=== PATIENT | female | born 2000 | race Caucasian/White ===

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

== ENCOUNTER 2023-11-14 16:40 | Emergency (ER) | payer OTHER ==
[~2023-11-14] VITALS: Ht 154.9 cm; Wt 47.2 kg
[~2023-11-14 16:40] MED LIST: CEPH500 PO
[2023-11-14 16:48] VITALS: BP 120/71
== END 2023-11-14 18:00 | disposition home or self-care (01) ==
LOC: ER 16:40
DX: S63.91XA Sprain of unspecified part of right wrist and hand, initial encounter (principal); W23.2XXA Caught, crushed, jammed or pinched between a moving and stationary object, initial encounter
CPT/HCPCS: 73130; 99283-25; A9270; J1885

== ENCOUNTER 2023-12-04 03:25 | Emergency (ER) | payer OTHER ==
[~2023-12-04] VITALS: Ht 172.7 cm; Wt 49.9 kg
[2023-12-04 03:32] VITALS: BP 104/76
== END 2023-12-04 03:44 | disposition home or self-care (01) ==
LOC: ER 03:25
DX: S00.33XA Contusion of nose, initial encounter (principal); S00.12XA Contusion of left eyelid and periocular area, initial encounter; F10.99 Alcohol use, unspecified with unspecified alcohol-induced disorder; Y04.0XXA Assault by unarmed brawl or fight, initial encounter
CPT/HCPCS: 99282

== ENCOUNTER 2024-03-11 18:35 | Emergency (ER) | payer OTHER ==
[~2024-03-11] VITALS: Ht 154.9 cm; Wt 49.9 kg
[2024-03-11 21:00] VITALS: BP 111/54
== END 2024-03-11 21:16 | disposition home or self-care (01) ==
LOC: ER 18:35
DX: S22.41XA Multiple fractures of ribs, right side, initial encounter for closed fracture (principal); W18.30XA Fall on same level, unspecified, initial encounter

== ENCOUNTER 2024-11-03 08:40 | Emergency (ER) | payer OTHER ==
[~2024-11-03] VITALS: Ht 152.4 cm; Wt 47.6 kg
[~2024-11-03 08:40] MED LIST changes: +CYMBALTA30 M2 PO; +HYDHCL25 PO; +HYDR1TAB94 PO
[2024-11-03 09:28] VITALS: BP 131/78
[2024-11-03 10:02] LABS: CORONAVIRUS COVID-19 AG Negative (NEGATIVE); INFLUENZA A AG Negative (NEGATIVE); INFLUENZA B AG Negative (NEGATIVE)
[2024-11-03] MEDS ORDERED: ALBU90OI INH (12:21)
[2024-11-03] MEDS ORDERED: BENZ100A PO (12:21)
[2024-11-03] MEDS ORDERED: ONDA4ODT MM (12:21)
[2024-11-03] MEDS ORDERED: Dexamethasone Sod Phos 10 MG/ML 1ML VIAL PO ONE (12:25)
== END 2024-11-03 12:45 | disposition home or self-care (01) ==
LOC: ER 08:40
PROVIDERS: Physician Assistant
DX: J40 Bronchitis, not specified as acute or chronic (principal); Z79.899 Other long term (current) drug therapy
CPT/HCPCS: 71046; 87428-QW; 99283-25; J1100

== ENCOUNTER 2025-05-18 23:01 | Emergency (ER) | payer OTHER ==
[~2025-05-18] VITALS: Ht 157.5 cm; Wt 49.9 kg
[~2025-05-18 23:01] MED LIST changes: +ALBU90OI INH; +BENZ100A PO; +ONDA4ODT MM
[2025-05-18 23:37] VITALS: BP 126/87
[2025-05-19] MEDS ORDERED: IBUP400 PO (00:10)
== END 2025-05-19 00:27 | disposition home or self-care (01) ==
LOC: ER 23:01
DX: S02.2XXA Fracture of nasal bones, initial encounter for closed fracture (principal); S00.03XA Contusion of scalp, initial encounter; Y09 Assault by unspecified means; Y92.59 Other trade areas as the place of occurrence of the external cause; F10.129 Alcohol abuse with intoxication, unspecified
CPT/HCPCS: 70450; 70486; 72125; 99284-25; A9270

== ENCOUNTER 2025-09-16 08:51 | Emergency (ER) | payer OTHER ==
[~2025-09-16] VITALS: Ht 152.4 cm; Wt 49.9 kg
[~2025-09-16 08:51] MED LIST changes: +IBUP400 PO
[2025-09-16] MEDS ORDERED: OLANZAPINE5 M1 PO (10:49)
[2025-09-16] MEDS ORDERED: OXAYDO5 M1 PO (11:57)
[2025-09-16] MEDS ORDERED: IBUP600 PO (11:57)
[2025-09-16 12:58] VITALS: BP 110/76
== END 2025-09-16 13:07 | disposition home or self-care (01) ==
LOC: ER 08:51
DX: S92.212A Displaced fracture of cuboid bone of left foot, initial encounter for closed fracture (principal); S92.322A Displaced fracture of second metatarsal bone, left foot, initial encounter for closed fracture; S92.332A Displaced fracture of third metatarsal bone, left foot, initial encounter for closed fracture; S92.342A Displaced fracture of fourth metatarsal bone, left foot, initial encounter for closed fracture; S92.222A Displaced fracture of lateral cuneiform of left foot, initial encounter for closed fracture; S92.242A Displaced fracture of medial cuneiform of left foot, initial encounter for closed fracture; S02.2XXA Fracture of nasal bones, initial encounter for closed fracture; W17.89XA Other fall from one level to another, initial encounter; Z79.899 Other long term (current) drug therapy
CPT/HCPCS: 70450; 70486; 73610; 73630; 73700; 99284-25; A9270

== ENCOUNTER 2025-09-25 06:07 | Day surgery (SDC) | payer OTHER ==
[~2025-09-25] VITALS: Ht 154.9 cm; Wt 54.5 kg
[~2025-09-25 06:07] MED LIST changes: +IBUP600 PO; +OLANZAPINE5 M1 PO; +OXAYDO5 M1 PO
[2025-09-25] MEDS ORDERED: CeFAZolin Sodium 2,000 MG VIAL ONE (06:26)
[2025-09-25] MEDS ORDERED: Ropivacaine 0.5% HCL/PF 5 MG/ML 30ML Vial ONE (06:45)
--- NOTE | 2025-09-25 06:50 | NUR ---
09/25/25 0650 JHON OZUNA PT READY FOR OR, FAMILY BROUGHT BACK TO BEDSIDE. CALL LIGHT IN REACH. PT EDUCATED AND ALL QUESTIONS ASKED AND ANSWERED. SPLINT LEFT IN PLACE D/T INSTABILITY OF FRACTURE. AWAITING ASSESSENT BY DR. ROLAND. WILL MONITOR UNTIL TRANSFER TO OR.
[2025-09-25] MEDS ORDERED: FentaNYL Citrate 50 MCG/ML 2 ML Injection ONE ×3 (07:22→13:09)
[2025-09-25] MEDS ORDERED: Midazolam HCl 1MG / ML 2ML Vial ONE (07:22)
[2025-09-25] MEDS ORDERED: Phenylephrine HCl 100 MCG/ML-NS 10MLSYR (1MG/10ML) ONE (08:58)
[2025-09-25] MEDS ORDERED: Ondansetron HCl 2 MG / ML 2ML Vial ONE ×2 (08:58→12:32)
[2025-09-25] MEDS ORDERED: Bupivacaine 0.5% HCl 5 MG/ML 30MLVIAL ONE (08:58)
[2025-09-25] MEDS ORDERED: Ketorolac Tromethamine 30mg Vial ONE (08:58)
[2025-09-25] MEDS ORDERED: Dexamethasone Sod Phos 10 MG/ML 1ML VIAL ONE (08:58)
[2025-09-25] MEDS ORDERED: HYDROmorphone HCl/Pf 1MG SYR ONE ×2 (09:01→11:05)
[2025-09-25] MEDS ORDERED: CeFAZolin Sodium 1000 mg Vial ONE (11:00)
--- NOTE | 2025-09-25 11:55 | NUR ---
09/25/25 1155 PEDRO FIERRO URINAL PLACED UNDER BOTTOM SHE CANNOT WAIT TO URINATE. PAIN 05/14 NAUSEA- GONE NOW
--- NOTE | 2025-09-25 12:35 | NUR ---
09/25/25 1235 PEDRO FIERRO PT C/O NAUSEA. ZOFRAN PULLED. SIPPING ON STARRY. NO EMESIS AT THIS TIME. "JUST BURPY"
[2025-09-25] MEDS ORDERED: OxyCODONE 5 mg/Acetamin 325 mg TABLET ONE (13:59)
[2025-09-25 14:13] VITALS: BP 118/61
== END 2025-09-25 14:45 | disposition home or self-care (01) ==
LOC: ORSCSDS 06:07
PROVIDERS: Podiatrist Foot & Ankle Surgery
PROC: 0QHM05Z Insertion of External Fixation Device into Left Tarsal, Open Approach (ICD-10-PCS; principal; 2025-09-25 07:30)
PROC: 0QSM04Z Reposition Left Tarsal with Internal Fixation Device, Open Approach (ICD-10-PCS; principal; 2025-09-25 07:30)
DX: S93.325A Dislocation of tarsometatarsal joint of left foot, initial encounter (principal); S92.212A Displaced fracture of cuboid bone of left foot, initial encounter for closed fracture
CPT/HCPCS: A9270; C1713; C1769; C1889; J0690; J1100; J1171; J1885; J2250; J2371; J2405; J2704; J2795; J3010; J7120

== ENCOUNTER 2025-10-19 11:37 | Emergency (ER) | payer OTHER ==
[~2025-10-19] VITALS: Ht 154.9 cm; Wt 49.4 kg
[2025-10-19 12:02] VITALS: BP 99/62
[2025-10-19] MEDS ORDERED: OxyCODONE 5 mg/Acetamin 325 mg TABLET PO ONE (12:05)
== END 2025-10-19 15:52 | disposition left against medical advice (07) ==
LOC: ER 11:37
DX: M79.605 Pain in left leg (principal); Z98.890 Other specified postprocedural states; Z53.29 Procedure and treatment not carried out because of patient's decision for other reasons
CPT/HCPCS: 93971; 99282-25; A9270